=== PATIENT | female | born 1995 | race Caucasian/White ===

== ENCOUNTER 2016-11-16 18:59 | Emergency (ER) | payer BC ==
[2016-11-16 19:13] VITALS: BP 119/78; PULSE 76; RESP 12; TEMP 97.9; O2SAT 94
--- NOTE | 2016-11-16 20:08 | UCPHY ---
H & P Time Seen by Provider: 11/16/16 19:58 Patient Type: New HPI/ROS: This patient was diagnosed with influenza last week and started on Tamiflu. Her fevers resolved and she overall feels better but she is bothered by frequent hacking cough that is decreasing her sleep. She has occasional slight wheeze sensation associated with this she notes no exacerbating or alleviating factors. Her symptoms 1st started , 6 days prior to arrival but the cough just started becoming more severe over the past few days. ROS: Constitutional: No myalgias other complaints at this point. HEENT: No headache. No sore throat. Pulmonary: No pleuritic pain. 7 point ROS is otherwise negative. Smoking Status: Never smoked Physical Exam: Physical Exam Vital signs are normal. General: No acute distress HEENT: Nose: Clear discharge. No sinus tenderness to percussion. Oropharynx is clear. Ears: External canals and TMs clear bilaterally. Eyes: Pupils equal and react to light. Extraocular motions are intact. Lungs: Faint expiratory wheezing when she coughs. No rales or rhonchi. No respiratory distress. Cardiac: Regular rate and rhythm with no murmur gallop or rub. Neuro: Alert and oriented x3 with no sensorimotor deficits. Initial differential diagnosis: Viral bronchitis, doubt pneumonia Constitutional: Initial Vital Signs Temperature (C) 36.6 C 11/16/16 19:08 Heart Rate 76 11/16/16 19:08 Respiratory Rate 12 11/16/16 19:08 Blood Pressure 119/78 11/16/16 19:08 O2 Sat (%) 94 11/16/16 19:08 O2 Delivery Mode Room Air Allergies/Adverse Reactions: ibuprofen Allergy (Verified 11/16/16 19:07) Home Medications: Medication Instructions Recorded Albuterol Hfa Anes Only [Proair 2 puffs IH Q4 PRN #1 mdi 11/16/16 Hfa Icu (*)] Fluticasone Hfa 220 Mcg [Flovent 2 puffs IH DAILY #1 mdi 11/16/16 220 MCG Hfa MDI (*)] Guaifenesin/Codeine Phosphate 5 - 10 ml PO Q6 PRN #120 ml 11/16/16 [Guaifenesin-Codeine Liquid] Tamiflu 11/16/16 MDM/Departure - MDM ED Course/Re-evaluation: Findings clinically consistent with viral bronchitis lingering after influenza. I counseled regarding this. - Depart Disposition: Home, Routine, Self-Care Clinical Impression: Viral bronchitis Condition: Good Instructions: Acute Bronchitis (ED) Additional Instructions: Diagnosis: Viral bronchitis Plan: Humidifier Albuterol inhaler with spacer for cough, wheeze or shortness of breath Guaifenesin with codeine for cough prevents sleep If your symptoms are not improving over the next 3-5 days then add Flovent steroid inhaler in addition. Return for any significant worsening despite the treatment plan Stand Alone Forms: School Excuse Prescriptions: Fluticasone Hfa 220 Mcg [Flovent 220 MCG Hfa MDI (*)] 2 puffs IH DAILY #1 mdi Guaifenesin/Codeine Phosphate [Guaifenesin-Codeine Liquid] 5 - 10 ml PO Q6 PRN # 120 ml PRN Reason: Cough Albuterol Hfa Anes Only [Proair Hfa Icu (*)] 2 puffs IH Q4 PRN #1 mdi PRN Reason: Wheezing Referrals: IN STATE,. [Primary Care Provider] - As per Instructions - PQRS PQRS Measurement: NA
== END 2016-11-16 20:24 | disposition home or self-care (01) ==
LOC: CED 18:59
DX: J20.8 Acute bronchitis due to other specified organisms (principal)
CPT/HCPCS: G0463-PO

== ENCOUNTER 2017-11-19 12:58 | Emergency (ER) | payer BC ==
[2017-11-19 13:17] VITALS: TEMP 97.9
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
[2017-11-19] MEDS ORDERED: ONDANSETRON DISINTEGRATING 4 MG TAB PO ONE ×2 (13:52→15:22)
[2017-11-19 14:02] VITALS: RESP 16
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
[2017-11-19 15:30] VITALS: O2SAT 98
[2017-11-19] MEDS ORDERED: AZITHROMYCIN 250 MG TAB PO ONE (15:33)
[2017-11-19] MEDS ORDERED: PROMETHAZINE HCL 25 MG TAB PO ONE (15:33)
[2017-11-19 19:41] VITALS: BP 110/58; PULSE 68
== END 2017-11-19 18:30 | disposition home or self-care (01) ==
LOC: CED 12:58 → EEVIPCON 12:58
DX: T74.21XA Adult sexual abuse, confirmed, initial encounter (principal)
CPT/HCPCS: J0696

== ENCOUNTER 2018-08-23 14:20 | Inpatient (IN) | payer BC ==
[2018-08-23 15:15] LABS: PLATELET COUNT 281 10^3/uL (150-400)
--- NOTE | 2018-08-23 15:25 | EDPHY ---
H & P Stated Complaint: SI/TOOK 8 ADVIL 30 MIN AGO - Personal History LMP (Females 10-55): IUD In Place Current Tetanus Diphtheria and Acellular Pertussis (TDAP): Yes Tetanus Vaccine Date: 2013 - Medical/Surgical History Hx Asthma: No Hx Chronic Respiratory Disease: No Hx Diabetes: No Hx Cardiac Disease: No Hx Renal Disease: No Hx Cirrhosis: No Hx Alcoholism: No Hx HIV/AIDS: No Hx Splenectomy or Spleen Trauma: No Other PMH: BIPOLAR - Social History Smoking Status: Current some day smoker Alcohol Use: Heavy Time Seen by Provider: 08/23/18 14:50 HPI/ROS: CHIEF COMPLAINT: Suicidal ideation HISTORY OF PRESENT ILLNESS: 23-year-old female with bipolar disorder presents with suicidal ideation. She got in an argument with a friend this morning, became very upset and had a panic attack. She then took 8 Advil in a suicidal gesture. Taking Lamictal as prescribed, no change in medication for the past 2 years. Feels that her antidepressant is not working any longer. Has an appointment with a psychiatrist tomorrow. REVIEW OF SYSTEMS: complete 10 point ROS reviewed and is negative except for the noted elements in the HPI (Vandana Leon) - Social History Additional Social History: Student at [employer] (Vandana Leon) - Physical Exam Exam: General Appearance: Alert, pleasant Eyes: Pupils equal and round, no conjunctival pallor ENT, Mouth: Mucous membranes moist Neck: Normal inspection Respiratory: Lungs are clear to auscultation Cardiovascular: Regular rate and rhythm Gastrointestinal: Abdomen is soft and nontender Neurological: A&O, nonfocal exam Skin: Warm and dry Extremities: Normal inspection Psychiatric: Mood and affect normal (Vandana Leon) Constitutional: Initial Vital Signs Temperature (C) 37.1 C 08/23/18 14:22 Heart Rate 93 08/23/18 14:22 Respiratory Rate 17 08/23/18 14:22 Blood Pressure 108/81 H 08/23/18 14:22 O2 Sat (%) 95 08/23/18 14:22 O2 Delivery Mode Room Air Allergies/Adverse Reactions: acetaminophen Allergy (Verified 08/23/18 14:26) Home Medications: Medication Instructions Recorded Herbals/Supplements -Info Only 1 ea PO DAILY 08/23/18 lamoTRIgine [LamICTAL XR] 300 mg PO DAILY 08/23/18 Medical Decision Making ED Course/Re-evaluation: The patient has been evaluated and accepted to [address] [place] [address] Castro[address] I will complete transfer paperwork. (Pranav Dennis) I placed this pt on an M1 hold for after my initial evaluation. She presents after a non-toxic overdose of Advil. 4p: Medically cleared for delonte. 5pm: signed over to Dr. Dennis, eval pending. (Vandana Leon) Differential Diagnosis: includes though not limited to toxic overdose, ARF, vomiting/gastritis, acute psychosis, homocidal (Vandana Leon) - Data Points Laboratory Results: Laboratory Results 08/23/18 14:50 08/23/18 14:50 Medications Given: Lamotrigine (Lamictal) 150 mg PO BID TORRI Stop: 02/19/19 20:59 Last Admin: 08/25/18 08:54 Dose: 150 mg Prazosin HCl (Minipress) 1 mg PO HS TORRI Stop: 02/20/19 20:59 Last Admin: 08/24/18 20:51 Dose: 1 mg Sertraline HCl (Zoloft) 50 mg PO DAILY TORRI Stop: 02/21/19 08:59 Last Admin: 08/25/18 08:55 Dose: 50 mg Trazodone HCl (Trazodone) 50 mg PO HS TORRI Stop: 02/20/19 20:59 Last Admin: 08/24/18 20:51 Dose: 50 mg Discontinued Medications Lorazepam (Ativan) 1 - 2 mg PO Q4HRS PRN PRN Reason: Anxiety Stop: 02/19/19 19:52 Last Admin: 08/23/18 21:21 Dose: 2 mg Sertraline HCl (Zoloft) 50 mg PO ONCE ONE Stop: 08/24/18 09:16 Last Admin: 08/24/18 11:09 Dose: 50 mg Departure - Departure Disposition: [facility] IP Clinical Impression: Suicidal ideation, Bipolar 1 disorder Condition: Fair
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
--- NOTE | 2018-08-23 19:17 | ASMTTCLDSP ---
TLC Discharge Disposition Disposition: Answers: Admit Discharge Concerns/Recommendations: Notes: In consultation with [facility] ED physician, Pranav Dennis MD and on-call psychiatrist, Lin Castro MD, both concurred that pt appears to meet 27-65 criteria requiring psychiatric hospitalization as pt appears to be at risk of harm to self due to a mental illness condition. Pt was given the 3N prohibited belongings list while in the ED. Was patient given the Answers: Yes Inpatient Behavioral Health Prohibited Belongings List while in the ED? For inpatient Lin Castro MD admission, the following psychiatrist agreed to accept patient for admission to Behavioral Health ([facility]): Hold initiated by: Answers: ED Physician Date Signed: 08/23/2018 07:16 PM Electronically Signed By:Letty Jimenez
[2018-08-23] MEDS ORDERED: OLANZapine DISINTEGR 5 MG TAB PO PRN (19:53)
[2018-08-23] MEDS ORDERED: LORazepam 1 MG TAB PO PRN (19:53)
[2018-08-23] MEDS ORDERED: MAG HYDROX/AL HYDROX/SIMETH 30 ML UDCUP PO PRN (20:25)
[2018-08-23] MEDS ORDERED: MAGNESIUM HYDROXIDE 30 ML UDCUP PO PRN (20:26)
[2018-08-23] MEDS ORDERED: IBUPROFEN 200 MG TAB PO PRN (20:27)
[2018-08-23] MEDS: lamoTRIgine 100 MG TAB PO SCH (21:20)
[2018-08-24] MEDS: lamoTRIgine 100 MG TAB PO SCH ×2 (08:48→20:51)
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
[2018-08-24] MEDS ORDERED: SERTRALINE HCL 50 MG TAB PO ONE (09:15)
[2018-08-24] MEDS ORDERED: LORazepam 1 MG TAB PO PRN (10:47)
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
--- NOTE | 2018-08-24 13:23 | ASMTCMCOM ---
CM Note CM Note Notes: Pt and CC completed MTP and placed in pt's chart. Pt. stated she tends to "bottle up" and then have a panic attack. Pt. shared she needs to communicate more with her support system. Pt. stated she broke up with her boyfriend on Monday. Pt. stated she does not want to drop the semester, stating school doesn't stress her out. Pt. stated she doesn't want her mom to take care of her, because "I need to actually do things myself". Pt. stated she was going to start a support group on Monday, but couldn't locate it. Pt. stated she plans to start seeing a new therapist, who can see her twice a week. Pt. stated she has a psychiatrist at [facility], but would like to see someone different. Pt. stated she lives about an hour away from campus and is thinking of moving closer next semester. Pt. presents as alert, calm, good eye contact, cooperative and with a friendly demeanor. Staff report pt. sleeping 9 hours and being medication compliant. Date Signed: 08/24/2018 01:23 PM Electronically Signed By:Eugenia Sawyer
--- NOTE | 2018-08-24 14:21 | PDMN ---
Medical Necessity Medical necessity: Pt meets inpt criteria per MD order and [facility] [id number], Major Depressive Disorder, Adult: Inpatient Care. 23 y/o admitted on M1 Hold due to risk of harm to self with Major depressive disorder, PTSD, alcohol and cannabis use disorders. Recent suicidal ideation/attempt. Pt requires inpt psychiatric hospitalization for above.
[2018-08-24] MEDS: PRAZOSIN HCL 1 MG CAP PO SCH (20:51)
[2018-08-24] MEDS: traZODone 50 MG TAB PO SCH (20:51)
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
[2018-08-25] MEDS: lamoTRIgine 100 MG TAB PO SCH ×2 (08:54→22:06)
[2018-08-25] MEDS: SERTRALINE HCL 50 MG TAB PO SCH (08:55)
--- NOTE | 2018-08-25 16:40 | SOAPPROG ---
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 Plan: 08/25/18 16:32 1. Patient was started on 3 new meds: Sertraline, Trazodone and Prazosin. She denies any physical complaints or SE's from meds. MD reviewed r/b/se's of these meds, including black box warning for risk of increased thoughts of suicide for young adults her age on SSRI. Also advised patient that SSRIs can induce eze and are not indicated for patient's with risk factors or known h/o bipolar disorder. Patient verbalizes her understanding of these risks and acknowledges she wants to continue taking her current meds. 2. Patient claims she is "not depressed" anymore and has no SI. 3. Patient does report "anxiety" and difficulty sleeping. She only slept 4.5 hrs last night. 4. Patient plans to stay in hospital until Monday. Will have f/u through [facility]. Subjective: Patient tolerating new meds. She denies any physical complaints. However, she says she is still having difficulty falling asleep, not much different with trazodone. She only slept 4.5 hrs last night. Patient denies any SI. Objective: Vital Signs Temp Pulse Resp BP Pulse Ox 37.1 C 79 14 100/68 97 08/25/18 08:00 08/25/18 08:00 08/25/18 08:00 08/25/18 08:00 08/25/18 08:00 MSE: Affect: Brighter Mood: "Better" TP: Linear, goal-directed TC: Denies any SI/HI Insight/Judgment: Improving - Time Spent With Patient Time Spent With Patient: 15" - Pending Discharge Pending Discharge Within 24 Hours: No Pending Discharge Within 48 Hours: Yes Pending Discharge Date: 08/27/18 (Likely d/c on Monday ) Pending Discharge Time: 11:00 ICD10 Worksheet Patient Problems: Problems Problem Status Onset Alcohol consumption binge drinking Acute Cannabis use disorder, mild, abuse Acute Major depressive disorder, recurrent episode, severe with anxious distress Chronic Post traumatic stress disorder Chronic
[2018-08-25] MEDS: PRAZOSIN HCL 1 MG CAP PO SCH (22:06)
[2018-08-25] MEDS: traZODone 50 MG TAB PO SCH (22:06)
[2018-08-26] MEDS: lamoTRIgine 100 MG TAB PO SCH ×2 (08:34→22:42)
[2018-08-26] MEDS: SERTRALINE HCL 50 MG TAB PO SCH (08:34)
--- NOTE | 2018-08-26 15:13 | ASMTBHFAM ---
Notes Note: Notes: CC spoke with pt's mother, Rosio, \\ MOC stated pt. was going to start a once a week DBT group, but missed it last week. MOC stated pt. used to see Xuan Huang, but therapist could only meet once a week. MOC stated pt. will start seeing Nayeli Hart twice a week after discharge. MOC stated she doesn't want pt to continue seeing Dr. Lilly at [facility]. MOC requested pt be set up with Zurdo Craft. MOC stated she has been in contact with Brian Reyes at to assist pt after hospitalization. MOC stated she is here from [place] and will return home when pt is stable at home. MOC stated she would like to take pt home to [place], but that is not what the pt. wants. MOC stated pt. has lost 15lbs unintentionally in the past few months. MOC stated pt. is "a big eater" usually. MOC stated she can pick pt. up when she is ready to discharge and can be at the hospital in 30 minutes. MOC stated she wants pt to go to [facility] pharmacy instead of the [facility] pharmacy because it is closed on weekends. Date Signed: 08/26/2018 03:12 PM Electronically Signed By:Eugenia Sawyer
--- NOTE | 2018-08-26 16:42 | SOAPPROG ---
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 Plan: 08/25/18 16:32 1. Patient was started on 3 new meds: Sertraline, Trazodone and Prazosin. She denies any physical complaints or SE's from meds. MD reviewed r/b/se's of these meds, including black box warning for risk of increased thoughts of suicide for young adults her age on SSRI. Also advised patient that SSRIs can induce eze and are not indicated for patient's with risk factors or known h/o bipolar disorder. Patient verbalizes her understanding of these risks and acknowledges she wants to continue taking her current meds. 2. Patient claims she is "not depressed" anymore and has no SI. 3. Patient does report "anxiety" and difficulty sleeping. She only slept 4.5 hrs last night. 4. Patient plans to stay in hospital until Monday. Will have f/u through [facility]. 08/26/18 16:38 1. Patient c/o nausea today, which might be related to starting on 2 SSRI's. However, she ate 100% of lunch and did not complain after it. She is willing to continue on current meds despite possible SE's. 2. Ordered patient to take own estrogen patch that she brought which isn't on formulary. 3. MOC spoke to CC and wants patient to have a a new psychiatrist. MOC is looking in the community. CC suggested patient could switch to new provider at [facility]. MOC and patient will decide. 4. Patient slept much better last night (8 hrs). 5. Likely d/c tomorrow. Subjective: Patient is eating and sleeping better than prior to admission. She slept 8 hrs last night, which is most sleep she's had in long time. Patient would like to be able to use her own estrogen patch which she brought with her. She's supposed to wear 2 patches a week, but she hasn't used it since Monday. Objective: Vital Signs Temp Pulse Resp BP Pulse Ox 36.4 C 76 14 103/63 96 08/26/18 08:00 08/26/18 08:00 08/26/18 00:30 08/26/18 08:00 08/26/18 08:00 MSE: Affect: Brighter, smiling Mood: "OK" TP: Linear, goal-directed TC: Denies any SI/HI Insight/Judgment: Fair - Time Spent With Patient Time Spent With Patient: 15" - Pending Discharge Pending Discharge Within 24 Hours: Yes Pending Discharge Date: 08/27/18 (Likely d/c on Monday) Pending Discharge Time: 11:00 ICD10 Worksheet Patient Problems: Problems Problem Status Onset Alcohol consumption binge drinking Acute Cannabis use disorder, mild, abuse Acute Major depressive disorder, recurrent episode, severe with anxious distress Chronic Post traumatic stress disorder Chronic
[2018-08-26] MEDS ORDERED: ESTRADIOL VIVELLE 0.025 MG PATCH TD SCH (21:00)
[2018-08-26] MEDS: PRAZOSIN HCL 1 MG CAP PO SCH (22:42)
[2018-08-26] MEDS: traZODone 50 MG TAB PO SCH (22:42)
[2018-08-27] MEDS: SERTRALINE HCL 50 MG TAB PO SCH (08:53)
[2018-08-27] MEDS: lamoTRIgine 100 MG TAB PO SCH (08:53)
[2018-08-27 09:20] VITALS: BP 93/56
--- NOTE | 2018-08-27 13:37 | BDS ---
REASON FOR ADMISSION: From the ED note dated 08/23/2018, patient presented to the emergency department with suicidal ideation. Patient got into an argument morning prior to presenting to the emergency department, became very upset, and had a panic attack. Patient took 8 Advil in a suicidal gesture. Patient was admitted involuntarily on an M1 hold due to being a danger to herself. Patient was admitted for safety, crisis stabilization, and medication evaluation. ADMITTING DIAGNOSES: 1. Posttraumatic stress disorder. 2. Major depressive disorder, recurrent episode, severe, with anxious distress. 3. Cannabis use disorder, mild. 4. Alcohol consumption, binge drinking. ADMISSION PHYSICAL EXAM: Patient was seen on 08/24/2018, for an Internal Medicine consultation for medical clearance for inpatient Behavioral Health stay. Patient was medically cleared for inpatient Behavioral Health stay. Dr. Lindsay reported he saw no medical contraindications to the patient's continued stay on the inpatient behavioral health unit or to any psychiatric medications or procedures. For further details, please refer to Dr. Lindsay's note dated 11/2017. ADMISSION LABS: CBC was completely within normal limits. Serum chemistry revealed a low carbon dioxide of 20 and a corresponding anion gap of 18. Otherwise, renal function and electrolytes were normal. Liver functions were normal. Lipid panel was quite benign, with cholesterol of 157, LDL of 89, and an HDL of 55. Beta hCG was negative for . Toxicology screen in the serum was negative for salicylates, acetaminophen, but was positive for ethyl alcohol at 13 mg/dL. Toxicology screen in the urine was non-negative for amphetamines, but negative otherwise for substances of abuse. MAJOR PROCEDURES/TESTS: None. HOSPITAL COURSE: The most prominent symptoms and behaviors while the patient was here were withdrawn to room. Patient presented with a flat affect and reported moderate depression and anxiety. Target symptoms during hospitalization were depression and anxiety. Patient also reported nightmares related to PTSD. The symptoms were also targeted during hospitalization. Treatment modalities utilized were milieu and group therapy. Prazosin 1 mg p.o. at bedtime was started to target nightmares related to posttraumatic stress disorder. This medication was tolerated with no report of side effects and with good response. Sertraline 50 mg p.o. daily was started to target depression, anxiety, and PTSD symptoms, was tolerated with no report of side effects. Trazodone 50 mg p.o. q.h.s. was started to target depression and insomnia related to depression, was tolerated with no report of side effects and with good response. Patient has improved considerably with no signs of psychiatric symptoms and no psychiatric symptoms expressed at time of discharge. Patient reports she has improved since admission, states to be in stable condition, feels safe to discharge, and she contracts for safety. Patient's response to treatment was good. There were no adverse or unexpected results of treatment. The patient was safe throughout her stay, active in treatment, engaged in groups, and was appropriate with staff and other patients. Patient met with the treatment team prior to discharge to assess readiness to discharge and reviewed discharge plan. The treatment team consensus is the patient is in stable condition, has a safe discharge plan, and is ready to discharge today. CONDITION AT DISCHARGE: Patient is in stable condition and is no longer a danger to self or others, and is not gravely disabled due to mental illness. Patient is no longer in need of inpatient level of care, and can be safely and effectively treated within the community. The patients level of risk at time of discharge is low. MSE: The patient is casually dressed and with good hygiene , and looks stated age. Patient is sitting, posture is upright, and position is relaxed. Patient appears awake, alert, and responds appropriately and reasonably during interview. Patient is engaged, relates well to interviewer, and emotional facial expression is appropriate to situation and changes appropriately with topic. Patient is cooperative, makes comfortable eye contact , and movements are voluntary, deliberate, coordinated, and smooth and even with no inappropriate movements. Patient makes laryngeal sounds effortlessly and shares conversation appropriately; pace of conversation is appropriate, and stream of talking is fluent; articulation is clear and understandable; word choice is effortless and appropriate for education level; completes sentences, occasionally pausing to think; rate and volume are appropriate for interview and setting. Patient reports mood as euthymic. Patients affect is stable with full variable range, congruent with mood, and appropriate to speech and circumstances. Patient has linear and logical thinking, with no loose associations, tangential thought, thought blocking, concrete thinking, or any other signs of formal thought disorder. Patient denies suicidal and homicidal ideation, and denies hallucinations and delusions. Patient appears to be a reliable historian with sound judgement and good insight into current condition. Patient has no apparent dysfunction in recent or remote memory noted , and no evidence of gross cognitive dysfunction noted at any point during the interview. DISCHARGE DIAGNOSES: 1. Posttraumatic stress disorder. 2. Major depressive disorder, recurrent episode, severe, with anxious distress. 3. Cannabis use disorder, mild. 4. Alcohol consumption, binge drinking. CURRENT MEDICATIONS: After reviewing options, risks, and benefits with the patient, patient agrees to continue: 1. Prazosin 1 mg p.o. q.h.s. for nightmares related to PTSD. 2. Sertraline 50 mg p.o. daily for anxiety, depression, and symptoms related to posttraumatic stress disorder. 3. Trazodone 50 mg p.o. q.h.s. for insomnia and depression. Patient requests prescriptions for these medications at time of discharge. Prescriptions for 30 days for each medication are provided. The prescriptions are reviewed with the patient at time of discharge to ensure accuracy and patient understanding. DISPOSITION: Patient left hospital independently and voluntarily with her mother. FOLLOWUP: sales training coordinator reports the appropriate outpatient follow-up services have been established and outpatient appointments have been scheduled. The patient received written instructions with times and dates of outpatient follow-up appointments. The following follow-up recommendations were provided to the patient at discharge: Continue psychotropic medications as prescribed and attend appointments as scheduled. Report any side effects to a psychiatric outpatient provider, a primary care provider, or other health home health care coordinator. Address any questions or problems concerning the psychotropic medications with a psychiatric outpatient provider, a primary care provider, or other health home health care coordinator. Contact [facility] or [facility], or go to the nearest emergency room, if you are ever a danger to yourself/others, or unable to care for yourself. As soon as possible, establish a routine medication management treatment with a psychiatric provider, establish routine therapy appointments, and follow-up with a primary care provider. SUBSTANCE ABUSE BRIEF INTERVENTION: Brief intervention regarding the risks of alcohol and cannabis abuse is provided to patient with goal to reduce the risk of harm that could result from the continued use of alcohol and cannabis, with the general aim to investigate the problem, raise awareness of problem, develop a solution with the patient, recommend a specific change or activity, and motivate the patient toward change. Assess substance abuse behavior and give supportive advice about harm reduction, recommend a reduction in hazardous/at- risk consumption patterns, and facilitate referrals for additional specialized treatment with palliative care specialist. Intermediate goal is for the patient to quit and attend outpatient substance abuse treatment. Intervention focus on intermediate goals to allow for more immediate success in the treatment process to keep the patient motivated. Review following with patient: Cannabis use risks: Short-term use: impaired short-term memory, impaired motor coordination, altered judgement, in high doses paranoia and psychosis. Long-term use addiction, diminished life satisfaction and achievement, symptoms of chronic bronchitis, and increased risk of chronic psychosis disorders if predisposition to such disorders. In withdrawal anger, aggression irritability, anxiety and nervousness, decreased appetite or weight loss, restlessness, and sleep difficulties with strange dreams. Alcohol/Binge Drinking risks: short-term: injuries, violence, alcohol poisoning, risky sexual behaviors. Long-term: high blood pressure, stroke, liver disease, digestive problems, cancer, learning and memory problems, depression and anxiety, social problems, and alcohol dependence. OUTPATIENT SUBSTANCE ABUSE TREATMENT: Patient referred to outpatient provider and treatment for continued treatment related to substance abuse. LEGAL COURSE: Patient was admitted on an M1 hold for involuntary inpatient psychiatric hospitalization. Patient discharged today independently and voluntarily with her mother. ATTITUDE AT TIME OF DISCHARGE: The patients attitude was positive at time of discharge, and patient reports looking forward to discharging today. The patient reports she feels safe to discharge, is no longer a danger to herself or others, is in stable condition, and contracts for safety. Patient states she will continue medications as prescribed, and establish medication management treatment with an outpatient provider after discharge. Patient reports she understands the information that has been provided to her, and she understands, accepts, and agrees to psychotropic medications. Patient describes internal protective factors as the coping skills she has learned while hospitalized here, and she plans to continue to practice these coping skills after discharge. LABORATORY/STUDIES: There were no pending labs or studies at time. ADVANCED DIRECTIVES: There were no advance directives on file and the patient was full code during this hospitalization. The following psychotropic medication treatment informed consent and recommendations were provided to the patient at time of discharge. Patient reports she understands, accepts, and agrees to the information that has been provided. PSYCHOTROPIC MEDICATION TREATMENT INFORMED CONSENT and RECOMMENDATIONS: Review nature of condition, diagnosis, and prognosis. Review nature and purpose of psychotropic medication treatment. Review type of psychotropic medications being prescribed. Review risk and benefits of psychotropic medication treatment. Review probable length of time will need to take medications. Review risk and benefits of not undergoing psychotropic medication treatment. Review alternative treatments to psychotropic medications. Review psychotropic medications contraindications, side effects, and importance of reporting any side effects to a psychiatric provider, primary care provider, or other health home health care coordinator. Review importance of her asking a psychiatric provider or primary care provider any questions or problems concerning the psychotropic medications. Review importance of reporting to a psychiatric provider, primary care provider, or other health home health care coordinator if she plans to or becomes . Review safety plan and the importance to contact [facility] or [facility] , or go to the nearest emergency room, if ever a danger to yourself/others, or unable to care for yourself. Recommend upon discharge to establish routine medication management treatment with a psychiatric provider, establish routine therapy appointments, and follow-up with a primary care provider. Verify patient understands, accepts, and agrees to the information that has been provided. SUICIDE ASSESSMENT FIVE-STEP EVALUATION AND TRIAGE (1) RISK FACTORS: (a) Suicidal behavior: one prior attempt in HS by overdose (b) Current/past psychiatric disorders: PTSD, Major Depression, Cannabis and Alcohol Use (c) Colon symptoms: none expressed or exhibited at time of discharge (d) Family history: none (e) Precipitants/Stressors/Interpersonal: none (f) Change in treatment: discharge from psychiatric hospital (g) Access to firearms: none (2) PROTECTIVE FACTORS: (a) Internal: coping skills learned while hospitalized (b) External: family, friends, and future (3) SUICIDAL INQUIRY: (a) Ideation: none (b) Plan: none (c) Behaviors: none; patient was safe throughout stay with no suicidal or parasuicidal behaviors (d) Intent: none (4) RISK LEVEL: Low: modifiable risk factors, strong protective factors; no suicidal or self-injurious ideation. Intervention: treatment plan to reduce symptoms including medications and therapy, provided emergency/crisis numbers, and established follow-up plan. /[id number]/MODL MTDD
== END 2018-08-27 11:45 | disposition home or self-care (01) | DRG 885 ==
LOC: BBEH 18:55
PROVIDERS: ADMIT Psychiatry & Neurology Behavioral Neurology & Neuropsychiatry; ATTEND Psychiatry & Neurology Behavioral Neurology & Neuropsychiatry
DX: F33.3 Major depressive disorder, recurrent, severe with psychotic symptoms (principal); F10.159 Alcohol abuse with alcohol-induced psychotic disorder, unspecified; F43.10 Post-traumatic stress disorder, unspecified; F12.959 Cannabis use, unspecified with psychotic disorder, unspecified; F17.200 Nicotine dependence, unspecified, uncomplicated
CPT/HCPCS: 80305; G0480